=== PATIENT | female | born 1940 | race Caucasian/White ===

== ENCOUNTER 2019-04-29 22:05 | Inpatient (IN) | payer MEDICARE ==
[~2019-04-29] VITALS: Ht 154.9 cm; Wt 44.9 kg
--- NOTE | 2019-04-29 22:15 | NUR ---
PT TYSHAWN FROM HOME C/O SOB. +DRY COUGH X3 DAYS, +FEVER. REC'D 1 BREATHING TREATMENT EN ROUTE WITH MINIMAL RELIEF. PT AOX4. NAD NOTED. RESP EVEN AND UNLABORED. O2 SAT AT 91%. PT DENIES PAIN AT THIS TIME. WILL CONTINUE TO MOITOR.
[2019-04-29] MEDS ORDERED: ALBUTEROL FS 2.5 MG/3 ML VIAL.NEB NEB ONE (22:30)
[2019-04-29] MEDS ORDERED: methylPREDNISolone SOD SUCC 125 MG/2ML VIAL IV ONE (22:30)
[2019-04-29] MEDS ORDERED: IPRATROPIUM NEB FS 0.5 MG/2.5 ML AMPUL.NEB NEB ONE (22:30)
[2019-04-29 22:52] LABS: BASOPHILS # (AUTO) 0.1 /CMM (0.0-0.2); BASOPHILS % (AUTO) 0.8 % (0.0-2.0); HEMATOCRIT 46 % (33-45); HEMOGLOBIN 15.3 g/dL (11.5-14.8); LYMPHOCYTES # (AUTO) 1.2 /CMM (0.8-4.8); LYMPHOCYTES % (AUTO) 17.8 % (20.0-44.0); MEAN CORPUSCULAR HGB CONC 34 g/dl (31.0-36.0); MEAN CORPUSCULAR VOLUME 91 fL (82-100); MONOCYTES # (AUTO) 0.6 /CMM (0.1-1.30); MONOCYTES % (AUTO) 9.4 % (2.0-12.0); NEUTROPHILS # (AUTO) 4.9 /CMM (1.8-8.9); PLATELET COUNT (AUTO) 170 /CMM (150-450); RED BLOOD CELL COUNT(AUTO) 4.98 MIL/uL (4.0-5.2); WHITE BLOOD COUNT (AUTO) 6.8 K/uL (4.3-11.0)
--- NOTE | 2019-04-29 22:56 | NUR ---
BLOOD DRAWN AND GIVEN TO PHLEB
[2019-04-29 22:59] LABS: CALCIUM, SERUM 9.2 mg/dL (8.5-10.1); CARBON DIOXIDE 30 mmol/L (21-32); CHLORIDE 97 mmol/L (98-107); CREATININE 0.9 mg/dL (0.6-1.3); GLUCOSE 103 mg/dL (74-106); POTASSIUM 3.2 mmol/L (3.5-5.1); SODIUM SERUM 137 mmol/L (136-145); UREA NITROGEN, BLOOD 18 mg/dL (7-18)
[2019-04-29] MEDS ORDERED: IPRATROPIUM NEB FS 0.5 MG/2.5 ML AMPUL.NEB ONE (23:10)
[2019-04-29] MEDS ORDERED: ALBUTEROL FS 2.5 MG/3 ML VIAL.NEB ONE (23:10)
[2019-04-29] MEDS ORDERED: methylPREDNISolone SOD SUCC 125 MG/2ML VIAL ONE (23:11)
--- NOTE | 2019-04-29 23:14 | NUR ---
RT AT BEDSIDE FOR BREATHING TREATMENT
[2019-04-29 23:16] LABS: ALANINE AMINOTRANSFERASE 18 U/L (12-78); ALBUMIN 3.6 g/dL (3.4-5.0); ALKALINE PHOSPHATASE 54 U/L (46-116); ASPARTATE AMINOTRANSFERASE 47 U/L (15-37); B-TYPE NATRIURETIC PEPTIDE 368 PG/ML (0-125); BILIRUBIN,DIRECT 0.2 mg/dL (0.0-0.2); BILIRUBIN,TOTAL 0.6 mg/dL (0.2-1.0); TOTAL PROTEIN, SERUM 7.4 g/dL (6.4-8.2)
--- NOTE | 2019-04-29 23:43 | NUR ---
BED ASSIGNMENT: 327-2
--- NOTE | 2019-04-29 23:58 | NUR ---
REPORT GIVEN TO VAUGHN GERBER FOR DRU
[2019-04-30] VITALS (7 sets, daily range): BP systolic 111–167; BP diastolic 54–77
[2019-04-30] MEDS ORDERED: ONDANSETRON HCL/PF 4 MG/2 ML VIAL IVP PRN (00:30)
[2019-04-30] MEDS ORDERED: MORPHINE SULFATE INJ 2 MG/ML DISP.SYRIN IV PRN (00:30)
[2019-04-30] MEDS ORDERED: HYDROCODONE/APAP 5/325MG 1 EACH TABLET PO PRN (00:30)
[2019-04-30] MEDS ORDERED: ALBUTEROL FS 2.5 MG/0.5 ML VIAL.NEB NEB PRN (00:30)
[2019-04-30] MEDS ORDERED: IPRATROPIUM NEB FS 0.5 MG/2.5 ML AMPUL.NEB NEB PRN (00:30)
[2019-04-30] MEDS ORDERED: MAGNESIUM HYDROXIDE 30 ML UDC PO PRN (00:30)
[2019-04-30] MEDS ORDERED: ACETAMINOPHEN 325 MG TABLET PO PRN (00:30)
--- NOTE | 2019-04-30 00:30 | NUR ---
MS LAND APPRAISER NOTES ADMITTED FROM ER THIS 78YO FEMALE,WITH CHIEF COMPLAINTS OF SOB,DRY COUGH WITH FEVER X 3 DAYS.ALERT,ORIENTED X3-4,BREATHING NON LABORED,O2 SAT 91% ON RA.NO KNOWN ALLERGY,NO SKIN ISSUES.SALINE LOCK RIGHT AC,INTACT AND PATENT.UNABLE TO REMEMBER NAMES OF HOME MEDS.SAYS TO CALL [facility] WHER HER MEDICAL RECORD IS.SHE ONLY REMEMBER TEMAZEPAM 15MG PO AT BEDTIME.ORIENTED TO ROOM SET UP.FALL PRECAUTION OBSERVED.BED ON LOWEST POSITION AND LOCKED.BED ALARM,CALL LIGHT IN REACH,NEEDS ANTICIPATED.
[2019-04-30] MEDS ORDERED: POTASSIUM CHLORIDE 20 MEQ TAB.PRT.SR PO ONE (01:00)
--- NOTE | 2019-04-30 01:42 | NUR ---
MS RN NOTES K LEVEL 3.2,REPLACE WITH K-DUR 40 MEQ ORDERED.
[2019-04-30] MEDS: TEMAZEPAM 15 MG CAPSULE PO PRN ×2 (01:48→22:01)
--- NOTE | 2019-04-30 01:48 | NUR ---
MS RN NOTES C/O INSOMNIA,MEDICATED WITH RESTORIL 15MG PO ORDERED.
[2019-04-30] MEDS: methylPREDNISolone SOD SUCC 40 MG/ML VIAL IV SCH ×3 (05:14→20:50)
--- NOTE | 2019-04-30 06:19 | NUR ---
MS RN NOTES SLEEPING,AROUSABLE TO VERBAL STIMULI.NO EPISODE OF SOB NOTED,AFEBRILE,FOR PULMONARY CONSULT DUE COPD,IN NO ACUTE DISTRESS.
--- NOTE | 2019-04-30 06:19 | NUR ---
MS RN NOTES DUE SOLU-MEDROL 40MG IV ADMINISTERED
[2019-04-30] MEDS ORDERED: TEMA15CA5 PO (07:25)
[2019-04-30] MEDS: IPRATROPIUM NEB FS 0.5 MG/2.5 ML AMPUL.NEB NEB SCH ×4 (07:30→20:26)
[2019-04-30] MEDS ORDERED: TIOT18CA3 IH (08:54)
[2019-04-30] MEDS ORDERED: OMEP20CA15 PO (08:54)
[2019-04-30] MEDS ORDERED: ATOR10TA PO (08:54)
[2019-04-30] MEDS ORDERED: ESCI10TA PO (08:54)
[2019-04-30] MEDS ORDERED: ALBU8.5H8 IH (08:54)
[2019-04-30] MEDS: MAG HYDROX/AL HYDROX/SIMETH 30 ML UDC PO PRN ×2 (10:07→13:00)
[2019-04-30] MEDS: PANTOPRAZOLE 40 MG TABLET.DR PO SCH (10:07)
[2019-04-30] MEDS: ATORVASTATIN 10 MG TABLET PO SCH (10:44)
[2019-04-30] MEDS: ESCITALOPRAM OXALATE (10 MG) 10 MG TABLET PO SCH (10:44)
[2019-04-30] MEDS ORDERED: IPRATROPIUM NEB FS 0.5 MG/2.5 ML AMPUL.NEB NEB SCH (13:30)
[2019-04-30] MEDS ORDERED: OMEPRAZOLE 20 MG CAPSULE.DR PO SCH (17:00)
[2019-04-30] MEDS: ENSURE ENLIVE 237 ML LIQUID (VANILLA) PO SCH (17:39)
--- NOTE | 2019-04-30 18:00 | NUR ---
pt. alert and oriented x4,a little sluggish,poor appetite.assisted to bedside commode to help her void.o2 on in am as pox 91%.
--- NOTE | 2019-04-30 19:30 | NUR ---
MS RN NOTES RECEIVED ON BED A/O X3,NO SOB,O2 IN USED ON AND OFF,SALINE LOCK RIGHT AC INTACT AND PATENT,FALL RISK,BED ON LOWEST POSITION AND LOCKED.BED ALARM TRIGGERED.BEDSIDE COMMODE AT BEDSIDE.ENCOURAGED TO CALL FOR ASSISTANCE WHENEVER SHE GET OUT CARRIE BED FOR ASSISTANCE.WILL CONTINUE TO MONITOR STATUS.
--- NOTE | 2019-04-30 21:00 | NUR ---
MS RN NOTES DUE SOLU-MEDROL 40MG IV GIVEN SCHEDULED.
[2019-04-30] MEDS ORDERED: TEMAZEPAM 15 MG CAPSULE PO PRN (22:00)
--- NOTE | 2019-04-30 22:00 | NUR ---
MS RN NOTES C/O INSOMNIA,RESTORIL 15MG PO GIVEN PER PATIENT REQUEST.
[2019-05-01] MEDS: IPRATROPIUM NEB FS 0.5 MG/2.5 ML AMPUL.NEB NEB SCH ×4 (01:30→19:48)
[2019-05-01] MEDS: methylPREDNISolone SOD SUCC 40 MG/ML VIAL IV SCH ×3 (05:02→20:30)
--- NOTE | 2019-05-01 06:32 | NUR ---
MS RN NOTES SLEPT WELL WITH RESTORIL, ASSISTED TO BEDSIDE COMMODE TO PEE.NO EPISODE OF SOB.SALINE LOC REMAINS PATENT.IN NO ACUTE DISTRESS.WILL ENDORSE TO DAY NURSE FOR DRU
[2019-05-01 06:34] LABS: BASOPHILS % (AUTO) 0.1 % (0.0-2.0); HEMATOCRIT 41 % (33-45); HEMOGLOBIN 13.8 g/dL (11.5-14.8); LYMPHOCYTES # (AUTO) 0.7 /CMM (0.8-4.8); LYMPHOCYTES % (AUTO) 9.7 % (20.0-44.0); MEAN CORPUSCULAR HGB CONC 34 g/dl (31.0-36.0); MEAN CORPUSCULAR VOLUME 91 fL (82-100); MONOCYTES # (AUTO) 0.7 /CMM (0.1-1.30); MONOCYTES % (AUTO) 10.2 % (2.0-12.0); NEUTROPHILS # (AUTO) 5.8 /CMM (1.8-8.9); PLATELET COUNT (AUTO) 213 /CMM (150-450); WHITE BLOOD COUNT (AUTO) 7.3 K/uL (4.3-11.0)
--- NOTE | 2019-05-01 06:55 | NUR ---
MS RN NOTES STILL UP TO BEDSIDE COMMODE TO URINATE.
[2019-05-01 07:03] LABS: CALCIUM, SERUM 9.2 mg/dL (8.5-10.1); CREATININE 0.8 mg/dL (0.6-1.3); MAGNESIUM 2.3 mg/dL (1.8-2.4); PHOSPHORUS 3.8 mg/dL (2.5-4.9); POTASSIUM 4.5 mmol/L (3.5-5.1)
[2019-05-01 07:05] LABS: THYROID STIMULATING HORMONE 0.249 uIU/mL (0.358-3.74)
--- NOTE | 2019-05-01 07:25 | NUR ---
MS RN OPENING NOTES RECEIVED PATIENT SITTING UP IN CHAIR. ALERT AND ORIENTED X4. ON O2 @ 2L/MIN VIA NC. NO SOB. DENIES ANY C/O PAIN NOR DISCOMFORT AT THIS TIME. RIGHT AC SL # 20 INTACT AND PATENT. CALL LIGHT WITHIN REACH. ABLE TO VERBALIZE NEEDS.
--- NOTE | 2019-05-01 07:58 | NUR ---
MS RN NOTES CHECKED ON PATIENT PER PATIENT STILL CONCENTRATING ON COMMODE. WILL CALL WHEN FINISH PER PATIENT.
[2019-05-01 08:00] VITALS: BP 130/76
[2019-05-01] MEDS: PANTOPRAZOLE 40 MG TABLET.DR PO SCH (08:35)
[2019-05-01] MEDS: ENSURE ENLIVE 237 ML LIQUID (VANILLA) PO SCH ×3 (08:40→17:20)
[2019-05-01] MEDS: ATORVASTATIN 10 MG TABLET PO SCH (08:41)
[2019-05-01] MEDS: ESCITALOPRAM OXALATE (10 MG) 10 MG TABLET PO SCH (08:41)
[2019-05-01] MEDS ORDERED: TIOTROPIUM BROMIDE 6 CAP/BOX CAP.W.DEV IH SCH (09:00)
[2019-05-01] MEDS: MAG HYDROX/AL HYDROX/SIMETH 30 ML UDC PO PRN (13:43)
[2019-05-01 16:00] VITALS: BP 130/76
[2019-05-01 16:01] VITALS: BP 118/65
--- NOTE | 2019-05-01 18:40 | NUR ---
MS RN CLOSING NOTES ALERT AND ORIENTED X4. HOB ELEVATED. NO S/S OF RESPIRATORY DISTRESS. ON O2 @ 2L/MIN VIA NC. DENIES ANY C/O PAIN NOR DISCOMFORT AT THIS TIME. PATIENT ABLE TO TRANSFER SELF FROM BED TO CHAIR WITHOUT DIFFICULTY NOR DISTRESS. RIGHT AC SL # 20 INTACT AND PATENT. CALL LIGHT WITHIN REACH. BED IN LOWEST POSITION,LOCKED. BED SIDERAILS UP X2. ABLE TO VERBALIZE NEEDS. IN NO APPARENT DISTRESS.
--- NOTE | 2019-05-01 19:10 | NUR ---
RN medsurg opening notes Received Pt from morning nurse. Pt is resting in bed comfortably. Pt is alert and orientedX4. Respiration is normal in 2 L NC. No SOB. No S/S of distress noted. IV sites at RAC # 20 is clean, intact and patent. Safety precautions is maintained. Bed at low position, brakes locked, side rails upX3 and call light is within reach. Will continue to monitor.
[2019-05-01 20:00] VITALS: BP 142/74
[2019-05-01 20:23] VITALS: BP 142/74
--- NOTE | 2019-05-01 20:32 | NUR ---
Raf MENDES notes Pt's complaining of headache and requesting tylenol. Administered tylenol 325mg/2 tabs/po as ordered for headache. VS is stable. Will continue to monitor. Addendum: 05/02/19 at 0106 by CITLALLI VELÁZQUEZ RN Cristin MENDES notes not Raf MENDES notes
[2019-05-02] MEDS: TEMAZEPAM 15 MG CAPSULE PO PRN (00:59)
--- NOTE | 2019-05-02 01:00 | NUR ---
RN medsurg notes Pt is having trouble sleeping and requesting meds. Administered restoril 15 mg/1 tab/po as ordered for sleeping. Will continue to monitor.
[2019-05-02] MEDS: IPRATROPIUM NEB FS 0.5 MG/2.5 ML AMPUL.NEB NEB SCH ×3 (01:22→12:52)
[2019-05-02] MEDS: methylPREDNISolone SOD SUCC 40 MG/ML VIAL IV SCH ×2 (04:16→13:03)
--- NOTE | 2019-05-02 06:40 | NUR ---
RN medsurg closing notes Pt is resting in bed comfortably. Pt is alert and orientedX4. Respiration is normal in 2 L NC. No SOB. No S/S of distress noted. IV sites at RAC# 20 is clean, intact, patent and SL. Routine meds were given as ordered. Kept Pt clean, dry, warm and comfortable. All needs met and attended. Safety precautions is maintained. Bed at low position, brakes locked, side rails UpX3 and call light is within reach. Will endorse to morning nurse for DRU.
--- NOTE | 2019-05-02 07:30 | NUR ---
m/s manager of global: notes niles (nephew) visiting at this time and wants to see the doctor.
[2019-05-02 08:00] VITALS: BP_SYST 114; BP_SYST 137; BP_DIAS 67
--- NOTE | 2019-05-02 08:15 | NUR ---
m/s value stream coach: md visit dr. bernabe at bedside talking to pt and nephew and informed them re: plan of care and possible d'c to snf today. pt and nephew verbalized understanding.
[2019-05-02] MEDS: ENSURE ENLIVE 237 ML LIQUID (VANILLA) PO SCH ×2 (08:33→13:00)
[2019-05-02] MEDS: PANTOPRAZOLE 40 MG TABLET.DR PO SCH (08:40)
[2019-05-02] MEDS: ATORVASTATIN 10 MG TABLET PO SCH (08:41)
[2019-05-02] MEDS: ESCITALOPRAM OXALATE (10 MG) 10 MG TABLET PO SCH (08:41)
--- NOTE | 2019-05-02 09:30 | NUR ---
m/s vegetable vendor: pulmo consult seen and examined by dr. lopez at this time and plan of care discussed by md at bedside and verbalized understanding.
[2019-05-02] MEDS ORDERED: AZIT250T13 PO (10:40)
[2019-05-02] MEDS ORDERED: PRED50TA PO (10:40)
[2019-05-02] MEDS ORDERED: ALBU2.5V13 NEB (10:40)
[2019-05-02] MEDS ORDERED: IPRA0.2S9 NEB (10:40)
--- NOTE | 2019-05-02 11:52 | NUR ---
m/s sheet metal worker helper: notes received order to d'c to snf. case management making arrangement. pt made aware.
--- NOTE | 2019-05-02 13:05 | NUR ---
m/s wood hacker: notes heather appiah) called and arranged discharge to [facility] at 1530 today. heather appiah) already spoke to niles (nephsteven) and agreed for d'c to snf and will talk to pt. pt made aware and informed her that heather appiah) will come up and talk to her about d'c to snf today.
--- NOTE | 2019-05-02 13:30 | NUR ---
m/s manuscripts archivist: notes report given to tal (rn) at [facility] for continuity of care.
--- NOTE | 2019-05-02 14:50 | NUR ---
m/s skating rink ice maker: notes discharge instructions with prescriptions given to pt and verbalized understanding. pt got dressed and up in chair. for tack picker at 1530.
--- NOTE | 2019-05-02 15:30 | NUR ---
m/s trial attorney: notes pt sitting up in chair and wearing her own clothes, awaiting for ambulance to pick her up. h/l removed with tip intact.
--- NOTE | 2019-05-02 15:39 | NUR ---
m/s knockdown worker: notes ambulance here and report given to one of the crew. vss.
--- NOTE | 2019-05-02 15:42 | NUR ---
m/s spiral gear generator: discharged discharge to snf in stable condition with all d'c papers and valuables.
== END 2019-05-02 15:50 | DRG 189 ==
LOC: ER 22:09 → TELE 23:47 → MED 04-30 00:28
PROVIDERS: ADMIT Nurse Practitioner Acute Care; ATTEND Internal Medicine
DX: J96.01 Acute respiratory failure with hypoxia (principal); J44.1 Chronic obstructive pulmonary disease with (acute) exacerbation; J45.901 Unspecified asthma with (acute) exacerbation; E87.6 Hypokalemia; Z87.891 Personal history of nicotine dependence; Z87.01 Personal history of pneumonia (recurrent); F32.9 Major depressive disorder, single episode, unspecified; K21.9 Gastro-esophageal reflux disease without esophagitis; E78.5 Hyperlipidemia, unspecified; R53.1 Weakness; R53.81 Other malaise; J06.9 Acute upper respiratory infection, unspecified
CPT/HCPCS: 36415; 71045-TC; 80048-TC; 80061-TC; 80076-TC; 83605-TC; 83735-TC; 83880; 84100-TC; 84443-TC; 84484-TC; 85025-TC; 87040-TC; 87081-TC; 94799-TC; 97116-TC; 97530-TC; G0378; J2920; J2930